=== PATIENT | male | born 1970 | race Caucasian/White ===

== ENCOUNTER → 2021-08-14 | Outpatient (CLI) | payer OTHER ==
--- NOTE | 2021-08-29 08:27 | PF ---
[address] [address] PULMONARY FUNCTION REPORT Name: PREETHI NEWELL Room: [facility]#: [id number] Admission: 08/14/21 [facility]end [facility]: Date of : 66 Report #: [id number] THIS REPORT FOR: cc: [facility] - Clinic physician unknown [facility] - Clinic physician unknown Deandre Estevez MD ~ DATE OF VISIT: 08/14/2021 PULMONARY FUNCTION TEST The FEV1/FVC ratio is normal at 81% with an FVC decreased to 66%. The FEV1 is also decreased to 69%. The FEF 25-75 is normal at 81%. After the administration of a bronchodilator, there is a 16% increase in FVC and a 20% increase in FEV1 to a post-bronchodilator FEV1 of 3.25 liters. The flow volume loop is concave upwards. Only a spirometry was performed. IMPRESSION: 1. Moderate obstruction with evidence of reversibility. 2. There is a possibility of mild restriction being present as well. If clinically indicated, then this could be evaluated further with full pulmonary function test including lung volumes. <ELECTRONICALLY SIGNED> By: Deandre Estevez MD 08/29/21 [id number] Estevez MD /nt
== END ==
LOC: M.PUL 13:00
PROVIDERS: ATTEND Chiropractor
DX: J98.8 Other specified respiratory disorders (principal); J45.998 Other asthma